=== PATIENT | female | born 2005 | race Caucasian/White ===

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

== ENCOUNTER 2024-10-12 12:40 | Emergency (ER) | payer BC, MEDICAID, SELFPAY ==
[2024-10-12 12:51] VITALS: BP 126/88; PULSE 112; RESP 14; TEMP 36.7; O2SAT 96; BMI 21.7
--- NOTE | 2024-10-12 13:01 | XR_ITS ---
WS: [id number] Portable AP upright chest, 10/12/2024 Clinical Data: palpitations Comparison: Portable chest, 02/14/2010. Findings: No nodules, masses or effusions are seen. The heart is normal. The pulmonary vascularity is not increased. No pneumonia or pneumothorax is seen. XR/XR chest 1V portable [id number] Impression: Negative chest.
--- NOTE | 2024-10-12 13:01 | ECG_ITS ---
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 Measurements Intervals [place] Rate: 106 P: 75 SC: 120 QRS: 82 QRSD: 84 T: 58 QT: 314 QTc: 419 Interpretive Statements SINUS TACHYCARDIA No previous ECG available for comparison Electronically Signed On 10-13-2024 15:10:02 CDT by Rashad Herrmann M.D. [email or web address] [id number]
[2024-10-12 13:20] LABS: Basophils % 0.3 %; Eosinophils % 0.4 %; Hematocrit 40.9 % (36-47); Lymphocytes # 1.8 10^3/uL (0.8-4.8); Lymphocytes % 23.4 %; Mean Corpuscular HGB Conc 32.8 g/dL (30-55); Mean Corpuscular Hemoglobin 30.9 pg (27-33); Mean Corpuscular Volume 94.2 fl (85-98); Monocytes # 0.4 10^3/uL (0.2-0.9); Monocytes % 5.1 %; Neutrophils # 5.48 10^3/uL (1.8-7.7); Neutrophils % 70.5 %; Nucleated Red Blood Cells % 0 %; Platelet Count 243 10^3/cmm (157-399); Red Blood Count 4.34 10^6/uL (3.85-5.65); White Blood Count 7.77 10^3/uL (3.29-11.43)
[2024-10-12 13:39] LABS: HCG, Serum Qual Negative (Negative)
[2024-10-12 13:52] LABS: Alanine Aminotransferase 7 U/L (0-33); Albumin Level 4.2 g/dL (3.5-5.2); Alkaline Phosphatase 54 U/L (35-105); Anion Gap 15.9 (5-19); Aspartate Amino Transferase 12 U/L (0-32); Blood Urea Nitrogen 6 mg/dL (6-20); Calcium 8.8 mg/dL (8.5-10.5); Carbon Dioxide 25 mmol/L (22-29); Chloride 103 mmol/L (98-107); Globulin 2.2 g/dL (1.3-4.6); Glomerular Filtration Rate 126.2 mL/min (90-130); Glucose 174 mg/dL (65-115); Osmolality Calculated 292 mOsm/kg (285-295); Potassium 3.9 mmol/L (3.5-5.1); Sodium 140 mmol/L (136-145); Thyroid Stimulating Hormone 1.12 uIU/mL (0.27-4.20); Total Bilirubin 0.3 mg/dL (0.15-1.2); Total Protein 6.4 g/dL (6.6-8.7)
--- NOTE | 2024-10-12 14:44 | W.ED.ARRPALP ---
HPI - Arrhythmia/Palpitations General: Chief Complaint: Arrhythmia/Palpitations Stated Complaint: heart issues Time Seen by Provider: 10/12/24 14:35 History of Present Illness: 19-year-old female who presents to the emergency room with multiple episodes of SVT today. She says she usually has about 1 episode a month. She has had this for a long time. She had been off insurance and so has not been on any medications recently. She said she just got insurance back and so she moved here and is trying to get established with a doctor. Says she feels beat but is no longer having symptoms of SVT. Said given the increased frequency she felt she needed to have an evaluation Related Data Previous Rx's ?Medication ?Instructions ?Recorded cephalexin 500 mg tablet 500 mg PO TID 7 days #21 tabs 10/12/24 Allergies Allergy/AdvReac Type Severity Reaction Status Date / Time No Known Allergies Allergy Verified 10/12/24 12:55 Review of Systems Narrative: Constitutional symptoms: Negative except as documented in HPI. Skin symptoms: Negative except as documented in HPI. Eye symptoms: Negative except as documented in HPI. ENMT symptoms: Negative except as documented in HPI. Respiratory symptoms: Negative except as documented in HPI. Cardiovascular symptoms: Negative except as documented in HPI. Gastrointestinal symptoms: Negative except as documented in HPI. Genitourinary symptoms: Negative except as documented in HPI. Musculoskeletal symptoms: Negative except as documented in HPI. Neurologic symptoms: Negative except as documented in HPI. Psychiatric symptoms: Negative except as documented in HPI. Endocrine symptoms: Negative except as documented in HPI. [facility]LY [facility], [facility] ED PFSH: Social History Smoking and tobacco/nicotine status: never used tobacco/nicotine Physical Exam Narrative: EXAM NARRATIVE: General: Alert, no acute distress. Skin: Warm, dry. Head: Normocephalic, atraumatic. Neck: Supple, trachea midline. Eye: Extraocular movements are intact. Ears, nose, mouth and throat: mucosa moist. Cardiovascular: Regular, Normal peripheral perfusion. Respiratory: Lungs are clear to auscultation, respirations are non-labored, breath sounds are equal, Symmetrical chest wall expansion. Gastrointestinal: Soft, Nontender, Non distended Musculoskeletal: Normal ROM, no deformity. Neurological: Alert and oriented, No focal neurological deficit observed. Psychiatric: Cooperative, appropriate mood & affect. Course Vital Signs: Vital signs: Vital Signs Temperature 98.1 F 10/12/24 12:51 Pulse Rate 90 10/12/24 14:51 Respiratory Rate 14 10/12/24 12:51 Blood Pressure 116/70 10/12/24 14:51 Pulse Oximetry 97 10/12/24 14:51 Oxygen Delivery Me thod Room Air 10/12/24 14:51 MDM - Arrhythmia/Palpitations Medical Decision Making Medical decision making: Differential diagnosis including but not limited to and based on the above HPI, review of systems and physical exam: for patient with palpitations: atrial fibrillation with rapid ventricular response. ventricular tachycardia. sinus tachycardia. PVCs. also concern for underlying issues causing tachycardia. Infection, electrolyte abnormalities and thyroid issues. Orders placed to evaluate differential diagnosis based on the above differential, HPI and physical exam EKG: Time 1246. Rate 106. Sinus tachycardia, No ST-T changes, no ectopy, normal ND & QRS intervals, This was reviewed and interpreted by myself the ER physician at 1252. Chest x-ray: No acute process. No infiltrate. No pneumothorax. This was reviewed and interpreted by myself the emergency room physician. I also reviewed the radiology report. Lab Review: Laboratory results were reviewed and interpreted by myself the emergency room physician. No leukocytosis. No anemia. No renal failure. TSH is normal. test is negative. I reviewed the patient's medical record. Reexamination: Patient remained stable. No increased work of breathing. No altered mental status. No focal motor deficits. Assessment and plan: SVT Urinary tract infection ?IV Rocephin in the emergency room ?Patient has had no further episodes of SVT here. Workup is negative for underlying issues. - Discharged home - Discussed plan with patient. Answered any questions. - Evaluation and treatment of this problem were appropriate in the emergency setting. Lab Data 10/12/24 13:15 10/12/24 13:15 Radiology Impressions Chest X-Ray 10/12/24 13:01 Impression: Negative chest. Laboratory Results WBC 7.77 10^3/uL (3.29-11.43) 10/12/24 13:15 RBC 4.34 10^6/uL (3.85-5.65) 10/12/24 13:15 Hgb 13.40 g/dL (11.27-16.99) 10/12/24 13:15 Hct 40.9 % (36-47) 10/12/24 13:15 MCV 94.2 fl (85-98) 10/12/24 13:15 MCH 30.9 pg (27-33) 10/12/24 13:15 MCHC 32.8 g/dL (30-55) 10/12/24 13:15 RDW 12.0 % (12.1-15.1) L 10/12/24 13:15 Plt Count 243 10^3/cmm (157-399) 10/12/24 13:15 MPV 10.0 fL (7.4-10.4) 10/12/24 13:15 Neut % (Auto) 70.5 % 10/12/24 13:15 Lymph % (Auto) 23.4 % 10/12/24 13:15 [place] % (Auto) 5.1 % 10/12/24 13:15 Eos % (Auto) 0.4 % 10/12/24 13:15 Baso % (Auto) 0.3 % 10/12/24 13:15 Neut # (Auto) 5.48 10^3/uL (1.8-7.7) 10/12/24 13:15 Lymph # (Auto) 1.8 10^3/uL (0.8-4.8) 10/12/24 13:15 [place] # (Auto) 0.4 10^3/uL (0.2-0.9) 10/12/24 13:15 Eos # (Auto) 0.0 10^3/uL (0.0-0.8) 10/12/24 13:15 Baso # (Auto) 0.0 10^3/uL (0.0-0.1) 10/12/24 13:15 Nucleated RBC % (auto) 0 % 10/12/24 13:15 Nucleated RBCs # 0.0 /100WBC 10/12/24 13:15 Sodium 140 mmol/L (136-145) 10/12/24 13:15 Potassium 3.9 mmol/L (3.5-5.1) 10/12/24 13:15 Chloride 103 mmol/L (98-107) 10/12/24 13:15 Carbon Dioxide 25 mmol/L (22-29) 10/12/24 13:15 Anion Gap 15.9 (5-19) 10/12/24 13:15 BUN 6 mg/dL (6-20) 10/12/24 13:15 Creatinine 0.6 mg/dL (0.5-0.9) 10/12/24 13:15 GFR Calculation 126.2 mL/min (90-130) 10/12/24 13:15 Glucose 174 mg/dL (65-115) H 10/12/24 13:15 Calculated Osmolality 292 mOsm/kg (285-295) 10/12/24 13:15 Calcium 8.8 mg/dL (8.5-10.5) 10/12/24 13:15 Total Bilirubin 0.3 mg/dL (0.15-1.2) 10/12/24 13:15 AST 12 U/L (0-32) 10/12/24 13:15 ALT 7 U/L (0-33) 10/12/24 13:15 Alkaline Phosphatase 54 U/L (35-105) 10/12/24 13:15 Total Protein 6.4 g/dL (6.6-8.7) L 10/12/24 13:15 Albumin 4.2 g/dL (3.5-5.2) 10/12/24 13:15 Globulin 2.2 g/dL (1.3-4.6) 10/12/24 13:15 TSH 1.12 uIU/mL (0.27-4.20) 10/12/24 13:15 HCG, Qual Negative (Negative) 10/12/24 13:15 Urine Color Yellow (Yellow) 10/12/24 15:39 Urine Appearance Turbid (CLEAR) A 10/12/24 15:39 Urine pH 7.5 (5-7) 10/12/24 15:39 Ur Specific [place] 1.019 (1.005-1.030) 10/12/24 15:39 Urine Protein Trace (Negative) A 10/12/24 15:39 Urine Glucose (UA) Negative (Normal) 10/12/24 15:39 Urine Ketones Trace (Negative) 10/12/24 15:39 Urine Blood Non-haemolysed trace (Negative) 10/12/24 15:39 Urine Nitrate Negative (Negative) 10/12/24 15:39 Urine Bilirubin Negative (Negative) 10/12/24 15:39 Urine Urobilinogen 1.0 mg/dL (Negative) 10/12/24 15:39 Ur Leukocyte Esterase 2+ (Negative) A 10/12/24 15:39 Urine RBC 3-5 /hpf (0-2) 10/12/24 15:39 Urine WBC >100 /hpf (0-5) H 10/12/24 15:39 Ur Squamous Epith Cells 0-5 /hpf (0-5) 10/12/24 15:39 Amorphous Sediment Not Reportable 10/12/24 15:39 Urine Bacteria Trace /hpf (NONE) 10/12/24 15:39 Hyaline Casts 0.81 /lpf 10/12/24 15:39 Urine Opiates Screen Negative ng/mL (Negative) 10/12/24 15:39 Ur Barbiturates Screen Negative ng/mL (Negative) 10/12/24 15:39 Ur Phencyclidine Scrn Negative ng/mL (Negative) 10/12/24 15:39 Ur Amphetamines Screen Negative ng/mL (Negative) 10/12/24 15:39 U Benzodiazepines Scrn Negative ng/mL (Negative) 10/12/24 15:39 Urine Cocaine Screen Negative ng/mL (Negative) 10/12/24 15:39 U Marijuana (THC) Screen Positive ng/mL (Negative) H 10/12/24 15:39 All radiology interpretation(s) finalized by discharge Discharge Plan Discharge Patient Disposition: Home Clinical Impression: Supraventricular tachycardia, Urinary tract infection Condition: Stable Prescriptions: New cephalexin 500 mg tablet 500 mg PO TID 7 Days Qty: 21 0RF Discharge Orders: Discharge ED (Routine); Ordered 10/12/24 Ordered By: Bozena Vides Discharge Diet: Usual diet Discharge Activity: Increase activity as tolerated Patient Instructions: Supraventricular Tachycardia (ED), Urinary Tract Infection in Women (ED), Opioid Safety, Pain Management Activity Restrictions/Additional Instructions: Thank you for choosing [facility] for your healthcare needs today. You have been screened and evaluated and felt safe for discharge. Health conditions do change or evolve sometimes and as such it is important that you follow up with your Primary Doctor to be re checked, 3-5 days is a general good time frame for follow up. You are always welcome to return to the ED for re assessment if your symptoms are worsening or you have new concerns Print Language: Kosovan Coding Level of Care Code ED Epoxy Specialist for Zachery Nguyen
[2024-10-12 14:51] VITALS: BP 116/70; PULSE 90; O2SAT 97
[2024-10-12 15:59] LABS: Bilirubin Urine Negative (Negative); Blood Urine Non-haemolysed trace (Negative); Glucose Urine UA Negative (Normal); Ketones Urine Trace (Negative); Leukocyte Esterase Urine 2+ (Negative); Nitrate Urine Negative (Negative); Protein Urine Trace (Negative); Specific Gravity, Urine 1.019 (1.005-1.030); Urine Appearance Turbid (CLEAR); Urine Color Yellow (Yellow); pH Urine 7.5 (5-7)
[2024-10-12 16:01] LABS: Bacteria Urine Trace /hpf; Hyaline Casts Urine 0.81 /lpf; Squamous Epithelial Cell Urine 0-5 /hpf (0-5); WBC Urine >100 /hpf (0-5)
[2024-10-12 16:05] LABS: Add Urine Culture? Yes
[2024-10-12 16:06] LABS: Amphetamines Screen Urine Negative (Negative); Barbiturates Screen Urine Negative (Negative); Benzodiazepines Screen Urine Negative (Negative); Cocaine Screen Urine Negative (Negative); Opiate Screen Urine Negative (Negative); PCP Screen Urine Negative (Negative); THC Screen Urine Positive (Negative)
[2024-10-12] MEDS: cefTRIAXone 1,000 mg SDV 1000 MG IVP (16:37)
[2024-10-12 16:57] VITALS: BP 127/81; PULSE 86; RESP 18; O2SAT 97
== END 2024-10-12 16:58 | disposition home or self-care (01) ==
PROVIDERS: Physician Assistant; Emergency Provider Emergency Medicine
DX: I47.10 Supraventricular tachycardia, unspecified (principal); N39.0 Urinary tract infection, site not specified
CPT/HCPCS: 36415; 71045; 80053; 80306; 81001; 84443; 84703; 85025; 87086; 93005; 96374; 99285; J0696

== ENCOUNTER → 2025-01-31 11:44 | Outpatient (BNVA) | payer BC, MEDICAID, SELFPAY | PROVIDERS: PCP Family Medicine; Visit Provider Family Medicine | DX: R30.0 Dysuria (principal) | CPT/HCPCS: 81000; 87086 ==